=== PATIENT | female | born 1985 | race Caucasian/White ===

== ENCOUNTER 2021-09-28 12:01 | Inpatient (IN) ==
[2021-09-28] MEDS ORDERED: ONDANSETRON 4 MG/2 ML VIAL IV PRN ×2 (12:12→16:23)
[2021-09-28] MEDS ORDERED: MEPERIDINE 50 MG/1 ML VIAL IV PRN (12:12)
[2021-09-28] MEDS ORDERED: BUTORPHANOL 2 MG/ML VIAL IV PRN (12:12)
[2021-09-28] MEDS ORDERED: hydrALAZINE 20 MG/1 ML VIAL IV PRN (12:16)
[2021-09-28] MEDS ORDERED: AMPICILLIN INJ 2,000 MG in SODIUM CHLORIDE 0.9% 100 ML IV ONE (12:18)
[2021-09-28] MEDS ORDERED: hydrALAZINE 20 MG/1 ML VIAL ONE (12:19)
[2021-09-28] MEDS ORDERED: miSOPROStoL 200 MCG TABLET ONE (12:27)
[2021-09-28] MEDS ORDERED: METHYLERGONOVINE 0.2 MG/1 ML AMP ONE (12:28)
[2021-09-28] MEDS ORDERED: OXYTOCIN/LR 20 UNIT/1,000 ML BAG IV ONE ×2 (12:28→16:23)
[2021-09-28] MEDS ORDERED: CARBOPROST TROMETHAMINE 250 MCG/ML AMP IM ONE (12:28)
[2021-09-28] MEDS ORDERED: LACTATED RINGERS 1,000 ML IV SCH (12:30)
[2021-09-28] MEDS ORDERED: LIDOCAINE 1% 50 ML VIAL ONE (12:36)
[2021-09-28 12:51] LABS: Basophils # 0.1 10*3/uL (0.0-0.2); Basophils % 0.4 % (0.0-0.8); Eosinophils % 0.1 % (0.00-10.9); Hematocrit 38.7 VOL% (35.7-47.0); Hemoglobin 12.7 GM/DL (12.0-16.0); Immature Granulocytes % 1.3 %; Lymphocytes # 1.5 10*3/uL (1.4-4.0); Lymphocytes % 9.3 % (21.3-54.2); Mean Corpuscular HGB Conc 32.8 GM/DL (32-36); Mean Corpuscular Volume 86.8 FL (87-102); Mean Platelet Volume 13.9 FL (9.6-12.0); Neutrophils % 79.9 % (38.7-73.9); Platelet Count 185 T/CUMM (130-400); Red Blood Count 4.46 MC/CUMM (3.8-5.5); Red Cell Distribution Width 14.4 % (9.3-17.3)
[2021-09-28 12:54] LABS: Cord Arterial Blood HCO3 21.9 MMOL/L
[2021-09-28 12:55] LABS: Cord Venous Blood HCO3 23.3 MMOL/L; Cord Venous Blood PCO2 36.1 MMHG; Cord Venous Blood PO2 25.8 MMHG
[2021-09-28 13:05] LABS: Albumin 2.4 G/DL (3.4-5.0); Bilirubin,Total 0.6 MG/DL (0.20-1.00); Calcium 8.5 MG/DL (8.5-10.1); Osmolality,Calculated 266.2 MOS/KG (273-304); Potassium 4.1 MMOL/L (3.5-5.1); Total Protein 6.8 G/DL (6.4-8.2); Uric Acid 4.3 MG/DL (2.6-6.0)
[2021-09-28 13:06] LABS: Protein/Creatinine Ratio,Urine 0.5 RATIO
[2021-09-28 13:07] LABS: INR 0.9; PT Patient Result 10.3 SECS (10.5-12.0)
[2021-09-28] MEDS ORDERED: IBUPROFEN 800 MG TABLET PO ONE (13:45)
[2021-09-28] MEDS: LABETALOL 100 MG TABLET PO SCH ×2 (14:40→23:02)
[2021-09-28] MEDS ORDERED: oxyCODONE/ACETAMINOPHEN 5-325 MG TABLET PO ONE (15:09)
[2021-09-28] MEDS ORDERED: BISACODYL 10 MG SUPP RECTAL PRN (16:23)
[2021-09-28] MEDS ORDERED: ACETAMINOPHEN 325 MG TABLET PO PRN (16:23)
[2021-09-28] MEDS ORDERED: RHO(D) IMMUNE GLOBULIN 300 MCG SYRINGE IM ONE (16:23)
[2021-09-28] MEDS ORDERED: HYDROCORTISONE 2.5% RECTAL CREAM 30 GM TUBE TOP PRN (16:23)
[2021-09-28] MEDS ORDERED: LANOLIN 50% CREAM 0.3 OZ TUBE TOP PRN (16:23)
[2021-09-28] MEDS ORDERED: WITCH HAZEL PADS 100/JAR TOP PRN (16:23)
[2021-09-28] MEDS ORDERED: DIPH/TET/ACEL PERT BOOSTER VACCINE 0.5 ML VIAL IM ONE (16:23)
[2021-09-28] MEDS ORDERED: MEASLES/MUMPS/RUBELLA VACCINE 0.5 ML VIAL SUBCUT ONE (16:23)
[2021-09-28] MEDS ORDERED: BENZOCAINE 20%/MENTHOL 0.5% SPRAY 56 GM CAN TOP PRN (16:23)
[2021-09-28] MEDS ORDERED: oxyCODONE/ACETAMINOPHEN 5-325 MG TABLET PO PRN (16:23)
[2021-09-28 17:52] LABS: Barbiturates Screen,Urine Negative (Negative); Benzodiazepines Screen,Urine Negative (Negative); Cannabinoid Screen,Urine Negative (Negative); Opiate Screen,Urine Negative (Negative); Phencyclidine Screen,Urine Negative (Negative)
[2021-09-28] MEDS: DOCUSATE SODIUM 100 MG CAPSULE PO SCH (20:03)
[2021-09-28] MEDS: IBUPROFEN 800 MG TABLET PO PRN (20:04)
[2021-09-28] MEDS: oxyCODONE/ACETAMINOPHEN 5-325 MG TABLET PO PRN (21:22)
[2021-09-29 06:12] LABS: Basophils % 0.3 % (0.0-0.8); Eosinophils % 0.2 % (0.00-10.9); Hematocrit 32.1 VOL% (35.7-47.0); Hemoglobin 10.2 GM/DL (12.0-16.0); Immature Granulocytes % 0.8 %; Lymphocytes # 0.9 10*3/uL (1.4-4.0); Lymphocytes % 7.8 % (21.3-54.2); Mean Corpuscular HGB Conc 31.8 GM/DL (32-36); Mean Corpuscular Volume 90.4 FL (87-102); Mean Platelet Volume 13.7 FL (9.6-12.0); Monocytes % 9.3 % (1.7-12.7); Neutrophils % 81.6 % (38.7-73.9); Platelet Count 115 T/CUMM (130-400); Red Blood Count 3.55 MC/CUMM (3.8-5.5); Red Cell Distribution Width 14.3 % (9.3-17.3); White Blood Count 11.8 T/CUMM (4-12)
[2021-09-29] MEDS: LABETALOL 100 MG TABLET PO SCH ×3 (06:30→23:45)
[2021-09-29] MEDS: IBUPROFEN 800 MG TABLET PO PRN ×2 (06:33→20:23)
[2021-09-29 06:34] LABS: Hypochromia 1+; Microcytosis 1+
[2021-09-29] MEDS: DOCUSATE SODIUM 100 MG CAPSULE PO SCH ×2 (08:35→20:23)
[2021-09-29] MEDS: oxyCODONE/ACETAMINOPHEN 5-325 MG TABLET PO PRN ×2 (08:36→23:45)
[2021-09-30 07:28] VITALS: BP 132/85
[2021-09-30] MEDS ORDERED: LABETALOL 100 MG TABLET PO SCH (08:00)
[2021-09-30] MEDS: DOCUSATE SODIUM 100 MG CAPSULE PO SCH (08:53)
[2021-09-30] MEDS: oxyCODONE/ACETAMINOPHEN 5-325 MG TABLET PO PRN (09:50)
== END 2021-09-30 12:21 | disposition home or self-care (01) | DRG 560 ==
LOC: N.LD 12:01 → N.OB 16:22
PROVIDERS: ADMIT Specialist; ATTEND Specialist